=== PATIENT | male | born 1990 | race Caucasian/White ===

== ENCOUNTER 2020-12-27 05:10 | Emergency (ER) | payer SELFPAY ==
[2020-12-27] MEDS ORDERED: Lidocaine Viscous Sol 2% 15 ml UD Cup ONE (05:24)
[2020-12-27] MEDS ORDERED: Lorazepam 2 MG/ML VIAL ONE (05:53)
[2020-12-27 06:24] LABS: #Basophils 0.1 thou/uL (0.0-0.2); #Lymphocytes 0.6 thou/uL (1.20-3.40); #Monocytes 0.9 thou/uL (0.11-0.59); #Neutrophils 11.2 thou/uL (1.40-6.50); %Basophils 0.8 % (0.0-1.0); %Lymphocytes 4.9 % (21.0-51.0); %Neutrophils 87.4 % (42.0-75.0); Hemoglobin 15.8 g/dL (14.0-18.0); Mean Corpuscular HGB CONC 31.6 g/dL (32.0-36.0); Mean Corpuscular Hemoglobin 30.4 pg (27.0-31.0); Mean Corpuscular Volume 96.1 fL (78.0-98.0); Mean Platelet Volume 8.3 fL (7.4-10.4); Platelet Count 179 thou/uL (130-400); RBC Distribution Width 11.6 % (11.5-14.5); White Blood Cell (WBC) Count 12.8 thou/uL (4.8-10.8)
[2020-12-27] MEDS ORDERED: Sodium Chloride 0.9% 1,000 ML ONE (06:33)
[2020-12-27] MEDS ORDERED: Dexamethasone 10 MG/ML VIAL ONE (06:39)
[2020-12-27 06:40] LABS: ALT (SGPT) 164 U/L (8-55); AST (SGOT) 37 U/L (5-34); Albumin 3.2 g/dL (3.5-5.0); Alkaline Phosphatase 70 U/L (40-110); Anion Gap 22 mmol/L (10-20); BUN (Urea Nitrogen) 42 mg/dL (8.9-20.6); Bilirubin, Total 0.9 mg/dL (0.2-1.2); Calc. Creatinine Clearance 0 mL/min (70-130); Calcium 8.6 mg/dL (7.8-10.44); Carbon Dioxide 17 mmol/L (22-29); Chloride 107 mmol/L (98-107); Globulin 2.4 g/dL (2.4-3.5); Glucose 93 mg/dL (70-105); Potassium 4.8 mmol/L (3.5-5.1); Protein, Total 5.6 g/dL (6.0-8.3); Sodium 141 mmol/L (136-145)
== END 2020-12-27 06:43 | disposition short-term general hospital (02) ==
LOC: MADERS 05:10
DX: R41.82 Altered mental status, unspecified (principal); Z79.899 Other long term (current) drug therapy
CPT/HCPCS: 31500; 36415; 43752; 70450; 71045; 80053; 85025; 96360; 96374; 96375; J1100; J2060; J7050